=== PATIENT | female | born 1945 | race Caucasian/White ===

== ENCOUNTER 2018-08-20 19:47 | Emergency (ER) | payer OTHER ==
[2018-08-20 20:03] VITALS: BP 148/79; PULSE 74; TEMP 97.7; BMI 19.7
[2018-08-20] MEDS ORDERED: diphenhydrAMINE HCL 25 MG CAPSULE (FP) PO ONE ×2 (20:03→20:05)
[2018-08-20] MEDS ORDERED: DEXAMETHASONE LIQUID 0.5 MG/5 ML 240 ML BULK BOTTLE PO ONE (20:03)
[2018-08-20] MEDS ORDERED: CEPHALEXIN MONOHYDRATE 250 MG CAPSULE (FP) PO ONE (20:04)
[2018-08-20] MEDS ORDERED: CEPHALEXIN MONOHYDRATE 250 MG CAPSULE (FP) ONE (20:06)
[2018-08-20] MEDS ORDERED: DEXAMETHASONE SOD PHOSPHATE 10 MG/1 ML VIAL ONE (20:06)
--- NOTE | 2018-08-20 20:06 | PDOC ---
History of Present Illness <RizviShavon - Last Filed: 08/20/18 20:14> - General History Source: Patient Exam Limitations: No Limitations - History of Present Illness Initial Comments: 08/20/18 20:27 The patient is a 73 year old female, with no significant PMH, who presents to the emergency department complaining of a bug bite to the right foot that occurred this morning. The patient states she stepped outside of her house today when a bee stung her lateral right foot and ankle. The patient reports pruritus and erythema to the affected area but denies any pain. The patient mentions she has been stung in the past. The patient denies any numbness and tingling to the affected site. Denies chest pain, shortness of breath, headache and dizziness. Denies fever and chills Allergies: NKA Past surgical history: None reported Social history: None reported PCP: Dr. Arnold <Matias Finnegan - Last Filed: 08/20/18 20:29> - General Chief Complaint: Redness To Affected Area Stated Complaint: BEE STING Time Seen by Provider: 08/20/18 19:57 Past History - Past Medical History COPD: No Hypercholesterolemia: Yes Other medical history: TRIGEMINAL NEURALGIA, OSTEOPOROSIS - Suicide/Smoking/Psychosocial Hx Smoking History: Never smoked Hx Alcohol Use: No Drug/Substance Use Hx: No Substance Use Type: None <Shavon Rizvi - Last Filed: 08/20/18 20:14> <Matias Finnegan - Last Filed: 08/20/18 20:29> - Past Medical History Allergies/Adverse Reactions: Allergies Allergy/AdvReac Type Severity Reaction Status Date / Time No Known Allergies Allergy Verified 08/20/18 19:54 Home Medications: Ambulatory Orders Aspirin Coated [Ecotrin -] 81 mg PO DAILY 08/20/18 Carbamazepine 100 mg PO Q48H 08/20/18 Cephalexin 250 mg PO QID #20 capsule 08/20/18 Cholecalciferol (Vitamin D3) [Vitamin D3] 1,000 unit PO DAILY 08/20/18 Denosumab [Prolia] 60 mg SQ ASDIR 08/20/18 Rosuvastatin [Crestor -] 5 mg PO HS 08/20/18 Review of Systems - Review of Systems Able to Perform ROS?: Yes Comments:: 08/20/18 20:29 GENERAL/CONSTITUTIONAL: No fever or chills. No weakness. HEAD, EYES, EARS, NOSE AND THROAT: No change in vision. No ear pain or discharge. No sore throat. CARDIOVASCULAR: No chest pain or shortness of breath. RESPIRATORY: No cough, wheezing, or hemoptysis. GASTROINTESTINAL: No nausea, vomiting, diarrhea or constipation. GENITOURINARY: No dysuria, frequency, or change in urination. MUSCULOSKELETAL: No joint or muscle swelling or pain. No neck or back pain. SKIN: +Erythema to right foot NEUROLOGIC: No headache, vertigo, loss of consciousness, or change in strength/ sensation. ENDOCRINE: No increased thirst. No abnormal weight change. HEMATOLOGIC/LYMPHATIC: No anemia, easy bleeding, or history of blood clots. ALLERGIC/IMMUNOLOGIC: No hives or skin allergy. <Matias Finnegan - Last Filed: 08/20/18 20:29> *Physical Exam - Vital Signs Last Vital Signs Temp Pulse Resp BP Pulse Ox 97.7 F 74 17 148/79 97 08/20/18 19:54 08/20/18 19:54 08/20/18 19:54 08/20/18 19:54 08/20/18 19:54 <Shavon Rizvi - Last Filed: 08/20/18 20:14> - Vital Signs Last Vital Signs Temp Pulse Resp BP Pulse Ox 97.7 F 74 17 148/79 97 08/20/18 19:54 08/20/18 19:54 08/20/18 19:54 08/20/18 19:54 08/20/18 19:54 - Physical Exam Comments: 08/20/18 20:29 GENERAL: Awake, alert, and fully oriented, in no acute distress HEAD: No signs of trauma EYES: PERRLA, EOMI, sclera anicteric, conjunctiva clear ENT: Auricles normal inspection, hearing grossly normal, nares patent, oropharynx clear without exudates. Moist mucosa NECK: Normal ROM, supple, no lymphadenopathy, JVD, or masses LUNGS: Breath sounds equal, clear to auscultation bilaterally. No wheezes, and no crackles HEART: Regular rate and rhythm, normal S1 and S2, no murmurs, rubs or gallops ABDOMEN: Soft, nontender, normoactive bowel sounds. No guarding, no rebound. No masses EXTREMITIES: Normal range of motion, no edema. No clubbing or cyanosis. No cords, erythema, or tenderness NEUROLOGICAL: Cranial nerves II through XII grossly intact. Normal speech, normal gait SKIN: +Dorsal lateral aspect swelling of the right foot. 5 X 4 cm redness. No pitting edema or swelling. The patient reports pruritus. No pain with movement. Capillary refill and pulse intact. No calf tenderness <Matias Finnegan - Last Filed: 08/20/18 20:29> ED Treatment Course - Medications Given in the ED: ED Medications Discontinued Medications Generic Name Dose Route Start Last Admin Trade Name Freq PRN Reason Stop Dose Admin Cephalexin HCl 250 mg 08/20/18 20:04 08/20/18 20:10 Keflex - PO 08/20/18 20:05 250 mg ONCE ONE Administration Dexamethasone 10 mg 08/20/18 20:03 08/20/18 20:12 Decadron Liquid - PO 08/20/18 20:04 10 mg ONCE ONE Administration Diphenhydramine HCl 25 mg 08/20/18 20:03 08/20/18 20:10 Benadryl - PO 08/20/18 20:04 25 mg ONCE ONE Administration <Matias Finnegan - Last Filed: 08/20/18 20:29> Medical Decision Making - Medical Decision Making 08/20/18 20:14 Pt comes with bug bite to the lateral right foot and ankle. She comes for the swelling. I will treat with benadryl, decadron and keflex. Pt has an epipen at home. She has had hymenoptera stings in the past, and never had a reaction; I made her aware that a bad anaphylaxis may occur, though unlikely. Pt's uses epipen. <Shavon Rizvi - Last Filed: 08/20/18 20:14> *DC/Admit/Observation/Transfer - Discharge Dispostion Decision to Admit order: No <Shavon Rizvi - Last Filed: 08/20/18 20:14> - Attestations Scribe Attestion: 08/20/18 20:29 Documentation prepared by Matias Finnegan, acting as medical technologist generalist for Shavon Rizvi MD. <Matias Finnegan - Last Filed: 08/20/18 20:29> Diagnosis at time of Disposition: Bee sting - Discharge Dispostion Disposition: HOME Condition at time of disposition: Good - Prescriptions Prescriptions: Cephalexin 250 mg PO QID #20 capsule - Referrals Referrals: Carrie Arnold [Primary Care Provider] - - Patient Instructions Printed Discharge Instructions: How to Care for an Insect Bite or Sting, Insect Bites and Stings - Post Discharge Activity
== END 2018-08-20 20:20 | disposition home or self-care (01) ==
LOC: FER 19:47
DX: S90.861A Insect bite (nonvenomous), right foot, initial encounter (principal); W57.XXXA Bitten or stung by nonvenomous insect and other nonvenomous arthropods, initial encounter; Y93.89 Activity, other specified; Y92.9 Unspecified place or not applicable
CPT/HCPCS: 99281-25